=== PATIENT | female | born 1990 | race Caucasian/White ===

== ENCOUNTER 2016-11-09 01:43 | Emergency (ER) | payer MEDICAID, OTHER ==
[~2016-11-09] VITALS: Ht 152.4 cm; Wt 72.6 kg
[~2016-11-09 01:43] MED LIST: COLA100C PO; MOTR200T44 PO; PERC5TAB6 PO
[2016-11-09] MEDS ORDERED: prenatal vitamin (02:11)
[2016-11-09] MEDS ORDERED: NS 1,000 ML IV ONE (04:00)
[2016-11-09] MEDS ORDERED: ONDANSETRON 4MG/2ML VIAL (J2405) IV ONE (04:00)
[2016-11-09 04:34] LABS: BASO % 0.2 % (0.0-1.0); EOS # 0.1 K/mm3 (0.0-0.50); LARGE UNSTAINED CELL # 0.1 K/mm3 (0.0-0.4); LARGE UNSTAINED CELL % 0.6 % (0.0-4.0); LYMPH # 0.5 K/mm3 (1.5-6.5); LYMPH % 4.1 % (24.0-44.0); MEAN CORPUSCULAR HEMOGLOBIN 29.3 pg (27.0-33.0); MEAN CORPUSCULAR HGB CONC 34.6 g/dl (32.0-36.5); MEAN CORPUSCULAR VOLUME 84.7 fl (80.0-96.0); MONO # 0.4 K/mm3 (0.0-0.8); MONO % 3.8 % (0.0-5.0); NEUTROPHILS # 10.1 K/mm3 (1.8-7.7); NEUTROPHILS % 90.4 % (36.0-66.0); PLATELET COUNT, AUTOMATED 221 k/mm3 (150-450); RED CELL DISTRIBUTION WIDTH 12.2 % (11.5-14.5); WHITE BLOOD COUNT 11.2 K/mm3 (4.0-10.0)
[2016-11-09 04:48] LABS: CONTROL LINE HCG INT CTR LINE PRESENT
[2016-11-09 04:55] LABS: ALBUMIN/GLOBULIN RATIO 1.21 (1.00-1.93); ALKALINE PHOSPHATASE 67 U/L (45-117); ALT/SGPT 16 U/L (12-78); ANION GAP 6 MEQ/L (8-16); AST/SGOT 13 U/L (15-37); BILIRUBIN,DIRECT 0.2 MG/DL (0.0-0.2); BILIRUBIN,TOTAL 0.6 MG/DL (0.2-1.0); BLOOD UREA NITROGEN 14 MG/DL (7-18); CALCIUM LEVEL 8.4 MG/DL (8.5-10.1); CARBON DIOXIDE LEVEL 27 MEQ/L (21-32); CHLORIDE LEVEL 107 MEQ/L (98-107); CREATININE FOR GFR 0.75 MG/DL (0.55-1.02); GLOMERULAR FILTRATION RATE > 60.0 (>60); GLUCOSE, FASTING 111 MG/DL (70-105); POTASSIUM SERUM 4.2 MEQ/L (3.5-5.1); SODIUM LEVEL 140 MEQ/L (136-145); TOTAL PROTEIN 7.3 GM/DL (6.4-8.2)
[2016-11-09] MEDS ORDERED: ZOFR4TAB3 PO (06:32)
[2016-11-09 06:43] VITALS: BP 104/68
== END 2016-11-09 06:46 | disposition home or self-care (01) ==
LOC: M ED 03:00
DX: A09 Infectious gastroenteritis and colitis, unspecified (principal); Z79.899 Other long term (current) drug therapy
CPT/HCPCS: 80048; 80076; 83690; 84703; 85025; 93041; 96361; 96374; 99284; J2405

== ENCOUNTER → 2017-02-07 | Outpatient (REF) | payer OTHER ==
[~2017-02-07] MED LIST changes: -COLA100C PO; +COLA100C3 PO; +ZOFR4TAB3 PO; +prenatal vitamin
[2017-02-07 14:04] LABS: BASO % 0.6 % (0.0-1.0); EOS # 0.1 K/mm3 (0.0-0.50); EOS % 1.8 % (0.0-3.0); LARGE UNSTAINED CELL # 0.1 K/mm3 (0.0-0.4); LARGE UNSTAINED CELL % 1.4 % (0.0-4.0); LYMPH # 1.1 K/mm3 (1.5-6.5); LYMPH % 16.2 % (24.0-44.0); MEAN CORPUSCULAR HEMOGLOBIN 30.4 pg (27.0-33.0); MEAN CORPUSCULAR HGB CONC 35.3 g/dl (32.0-36.5); MEAN CORPUSCULAR VOLUME 86.2 fl (80.0-96.0); MONO # 0.3 K/mm3 (0.0-0.8); MONO % 5.3 % (0.0-5.0); NEUTROPHILS # 4.5 K/mm3 (1.8-7.7); NEUTROPHILS % 74.7 % (36.0-66.0); PLATELET COUNT, AUTOMATED 207 k/mm3 (150-450); RED CELL DISTRIBUTION WIDTH 12.9 % (11.5-14.5)
[2017-02-07 14:18] LABS: ALBUMIN 3.9 GM/DL (3.2-5.2); ALBUMIN/GLOBULIN RATIO 1.34 (1.00-1.93); ALKALINE PHOSPHATASE 50 U/L (45-117); ALT/SGPT 17 U/L (12-78); ANION GAP 7 MEQ/L (8-16); AST/SGOT 14 U/L (15-37); BILIRUBIN,TOTAL 0.5 MG/DL (0.2-1.0); BLOOD UREA NITROGEN 10 MG/DL (7-18); CALCIUM LEVEL 9.1 MG/DL (8.5-10.1); CARBON DIOXIDE LEVEL 28 MEQ/L (21-32); CHLORIDE LEVEL 106 MEQ/L (98-107); CREATININE FOR GFR 0.79 MG/DL (0.55-1.02); GLOMERULAR FILTRATION RATE > 60.0 (>60); GLUCOSE, FASTING 85 MG/DL (70-105); SODIUM LEVEL 141 MEQ/L (136-145); TOTAL PROTEIN 6.8 GM/DL (6.4-8.2)
== END ==
LOC: M LAB REF 13:50
PROVIDERS: ATTEND Physician Assistant
DX: R10.30 Lower abdominal pain, unspecified (principal)

== ENCOUNTER → 2017-02-07 | Outpatient (CLI) | payer OTHER ==
--- NOTE | 2017-02-07 14:24 | REP ---
CT ABDOMEN/PELVIS WITHOUT CONTRAST: CT abdomen/pelvis performed without oral or IV contrast. Sagittal and coronal reconstruction images are performed. Visualized lung bases demonstrate no infiltrate. Liver, spleen, adrenals, pancreas, and kidneys are grossly unremarkable. There is no abdominal aortic aneurysm. There is no evidence of adenopathy. There is no free air. No bowel wall thickening is seen. The appendix is normal. There is a moderate amount of dense fluid in the pelvis, presumably representing hemorrhagic fluid. This may be from a ruptured hemorrhagic ovarian cyst. There is an ovarian cyst on the left measuring approximately 5.4 cm in diameter. Urinary bladder is unremarkable. Spondylolysis is noted of L5 with minimal anterior grade 1 spondylolisthesis of L5 on S1. IMPRESSION: Moderate amount of hemorrhagic fluid in the pelvis likely from ruptured hemorrhagic ovarian cyst. There is a cyst in the left adnexa measuring 5.4 cm in diameter. No evidence of appendicitis. No hydronephrosis. No free air. Signed by Flaquito Almaguer MD 02/09/2017 06:57 P
== END ==
LOC: M RAD 13:23
PROVIDERS: ATTEND Physician Assistant
DX: R10.30 Lower abdominal pain, unspecified (principal); N83.202 Unspecified ovarian cyst, left side

== ENCOUNTER → 2017-08-11 | Outpatient (REF) | payer OTHER ==
[~2017-08-11] MED LIST changes: -COLA100C3 PO; +COLA100C5 PO; +PERC5TAB12 PO; -PERC5TAB6 PO
== END ==
LOC: M LAB REF 13:09
PROVIDERS: ATTEND Obstetrics & Gynecology
DX: Z11.3 Encounter for screening for infections with a predominantly sexual mode of transmission (principal)

== ENCOUNTER 2017-10-14 23:08 | Emergency (ER) | payer OTHER ==
[2017-10-14] MEDS ORDERED: ONDANSETRON 4MG/2ML VIAL (J2405) IV (23:45)
[2017-10-14] MEDS ORDERED: NS 1,000 ML IV (23:45)
[2017-10-14] MEDS ORDERED: KETOROLAC 30 MG/ML VIAL (J1885) IV (23:45)
== END 2017-10-15 00:09 | disposition home or self-care (01) ==
LOC: M ED 23:08
DX: G43.009 Migraine without aura, not intractable, without status migrainosus (principal); Z79.2 Long term (current) use of antibiotics; Z98.890 Other specified postprocedural states
CPT/HCPCS: 96374

== ENCOUNTER 2017-10-15 03:58 | Emergency (ER) | payer OTHER ==
[2017-10-15] MEDS: METOCLOPRAMIDE INJ 10MG/2ML VIAL (J2765) IV (06:26)
[2017-10-15] MEDS: NS 1,000 ML IV (06:27)
[2017-10-15] MEDS: KETOROLAC 30 MG/ML VIAL (J1885) IV (06:27)
[2017-10-15 06:34] LABS: BASO # 0.1 10^3/uL (0.0-0.2); BASO % 0.6 % (0.0-1.0); EOS % 0.4 % (0.0-3.0); HEMATOCRIT 41.7 % (36.0-47.0); HEMOGLOBIN 14.6 g/dl (12.0-16.0); IMMATURE GRANULOCYTE % 0.2 % (0-0); LYMPH # 1.1 10^3/uL (1.5-6.5); LYMPH % 12.6 % (24.0-44.0); MEAN CORPUSCULAR HEMOGLOBIN 29.1 pg (27.0-33.0); MEAN CORPUSCULAR VOLUME 83.1 fl (80.0-96.0); MONO # 0.7 10^3/uL (0.0-0.8); MONO % 7.6 % (0.0-5.0); NEUTROPHILS % 78.6 % (36.0-66.0); PLATELET COUNT, AUTOMATED 230 10^3/uL (150-450); RED BLOOD COUNT 5.02 10^6/uL (4.00-5.40); WHITE BLOOD COUNT 8.9 10^3/uL (4.0-10.0)
[2017-10-15 06:47] LABS: APPEARANCE, URINE CLEAR (CLEAR); BACTERIA, URINE AUTO NEGATIVE (NEGATIVE); BILIRUBIN, URINE AUTO NEGATIVE (NEGATIVE); BLOOD, URINE BLOOD NEGATIVE (NEGATIVE); COLOR, URINE YELLOW (YELLOW); GLUCOSE, URINE (UA) AUTO NEGATIVE (NEGATIVE); KETONE, URINE AUTO NEGATIVE (NEGATIVE); LEUKOCYTE ESTERASE, URINE AUTO NEGATIVE (NEGATIVE); MUCUS, URINE SMALL (NEGATIVE); NITRITE, URINE AUTO NEGATIVE (NEGATIVE); PROTEIN, URINE AUTO NEGATIVE (NEGATIVE); RBC, URINE AUTO 3 /HPF (0-3); SPECIFIC GRAVITY URINE AUTO 1.018 (1.002-1.035); SQUAMOUS EPITHELIAL CELL UR AU 0 /HPF (0-6); UROBILINOGEN, URINE AUTO 0.2 mg/dL (0.0-2.0); WBC, URINE AUTO 1 /HPF (0-3)
[2017-10-15] MEDS: diphenhydrAMINE INJ 50MG/ML VIAL (J1200) IV (06:51)
[2017-10-15 06:53] LABS: ANION GAP 7 MEQ/L (8-16); BLOOD UREA NITROGEN 8 MG/DL (7-18); CALCIUM LEVEL 8.3 MG/DL (8.5-10.1); CARBON DIOXIDE LEVEL 28 MEQ/L (21-32); CHLORIDE LEVEL 105 MEQ/L (98-107); CREATININE FOR GFR 0.74 MG/DL (0.55-1.30); GLOMERULAR FILTRATION RATE > 60.0 (>60); GLUCOSE, FASTING 117 MG/DL (70-100); POTASSIUM SERUM 3.5 MEQ/L (3.5-5.1); SODIUM LEVEL 140 MEQ/L (136-145)
== END 2017-10-15 07:25 | disposition home or self-care (01) ==
LOC: M ED 03:58
DX: G43.009 Migraine without aura, not intractable, without status migrainosus (principal); G89.29 Other chronic pain; I51.9 Heart disease, unspecified; E66.9 Obesity, unspecified; Z82.49 Family history of ischemic heart disease and other diseases of the circulatory system; Z79.2 Long term (current) use of antibiotics
CPT/HCPCS: J1200

== ENCOUNTER → 2018-02-07 | Outpatient (REF) | payer OTHER ==
[2018-02-08 11:31] LABS: FREE T4 1.18 NG/DL (0.76-1.46)
[2018-02-08 12:30] LABS: HEMATOCRIT 41.7 % (36.0-47.0); HEMOGLOBIN 14.2 g/dl (12.0-15.5); MEAN CORPUSCULAR HEMOGLOBIN 29.1 pg (27.0-33.0); MEAN CORPUSCULAR HGB CONC 34.1 g/dl (32.0-36.5); MEAN CORPUSCULAR VOLUME 85.5 fl (80.0-96.0); PLATELET COUNT, AUTOMATED 236 10^3/uL (150-450); RED BLOOD COUNT 4.88 10^6/uL (4.00-5.40); RED CELL DISTRIBUTION WIDTH 12.3 % (11.5-14.5); WHITE BLOOD COUNT 5.9 10^3/uL (4.0-10.0)
[2018-02-08 12:53] LABS: ADD MANUAL DIFFER YES; DIFF SLIDE NUMBER 312
[2018-02-08 13:29] LABS: ATYPICAL LYMPH 1 % (0-5); BANDS 1 % (< 11); BASOPHILS 1 % (0-4); EOSINOPHILS 3 % (0-5); LYMPHOCYTES 28 % (16-52); MONOCYTES 2 % (0-8); NEUTROPHILS 64 % (35-75)
[2018-02-08 13:30] LABS: ANISOCYTOSIS 1+; PLATELET ESTIMATE NORMAL (NORMAL)
[2018-02-08 14:38] LABS: LUTEINIZING HORMONE 6.2 mIU/mL
[2018-02-08 14:39] LABS: FOLLICLE STIMULATING HORMONE 2.5 mIU/mL
== END ==
LOC: M LABDRAW1 13:00
DX: N92.6 Irregular menstruation, unspecified (principal); R53.81 Other malaise

== ENCOUNTER 2018-04-15 15:16 | Emergency (ER) | payer OTHER ==
[2018-04-15] MEDS: KETOROLAC 30 MG/ML VIAL (J1885) IV (16:13)
[2018-04-15] MEDS: NS 1,000 ML IV (16:13)
[2018-04-15] MEDS: diphenhydrAMINE INJ 50MG/ML VIAL (J1200) IV (16:13)
[2018-04-15] MEDS: METOCLOPRAMIDE INJ 10MG/2ML VIAL (J2765) IV (16:13)
== END 2018-04-15 17:25 | disposition home or self-care (01) ==
LOC: M ED 15:16
DX: G43.909 Migraine, unspecified, not intractable, without status migrainosus (principal); Z79.899 Other long term (current) drug therapy
CPT/HCPCS: J1200

== ENCOUNTER 2018-09-29 01:14 | Emergency (ER) | payer MEDICAID, OTHER, SELFPAY ==
[~2018-09-29] VITALS: Ht 152.4 cm; Wt 78.2 kg
[~2018-09-29 01:14] MED LIST changes: +MAXA5TAB10 PO; +NAPR-885 PO; +ZOFR4TAB14 PO; +ZOFR4TAB14 SL; -ZOFR4TAB3 PO; +cipro PO
[2018-09-29] MEDS ORDERED: diphenhydrAMINE 50 MG CAP PO ONE (03:15)
[2018-09-29] MEDS ORDERED: MECLIZINE 25 MG TABLET PO ONE (03:15)
[2018-09-29] MEDS ORDERED: MECL-68 PO (04:54)
[2018-09-29 04:55] VITALS: BP 106/63
== END 2018-09-29 04:58 | disposition home or self-care (01) ==
LOC: M ED 01:14
DX: H83.09 Labyrinthitis, unspecified ear (principal); G43.909 Migraine, unspecified, not intractable, without status migrainosus

== ENCOUNTER → 2018-10-13 | Outpatient (REF) | payer OTHER ==
[~2018-10-13] MED LIST changes: +MECL-68 PO
[2018-10-13 21:50] LABS: INFLUENZA A AMPLIFICATION NEGATIVE (NEGATIVE); INFLUENZA B AMPLIFICATION NEGATIVE (NEGATIVE)
== END ==
LOC: M LAB REF 10:09
PROVIDERS: ATTEND Physician Assistant Medical
DX: J11.1 Influenza due to unidentified influenza virus with other respiratory manifestations (principal)

== ENCOUNTER → 2018-10-24 | Outpatient (REF) | payer OTHER | LOC: M LAB REF 17:04 | PROVIDERS: ATTEND Specialist | DX: Z12.4 Encounter for screening for malignant neoplasm of cervix (principal); Z11.51 Encounter for screening for human papillomavirus (HPV); R87.610 Atypical squamous cells of undetermined significance on cytologic smear of cervix (ASC-US) ==

== ENCOUNTER → 2018-11-13 | Outpatient (REF) | payer MEDICAID, OTHER ==
[2018-11-13 17:05] LABS: BASO # 0.1 10^3/uL (0.0-0.2); BASO % 0.9 % (0.0-1.0); EOS # 0.1 10^3/uL (0.0-0.50); HEMATOCRIT 42.9 % (36.0-47.0); HEMOGLOBIN 14.2 g/dl (12.0-15.5); LYMPH # 1.2 10^3/uL (1.5-6.5); LYMPH % 21.8 % (24.0-44.0); MEAN CORPUSCULAR HEMOGLOBIN 28.5 pg (27.0-33.0); MEAN CORPUSCULAR HGB CONC 33.1 g/dl (32.0-36.5); MONO # 0.5 10^3/uL (0.0-0.8); MONO % 9.2 % (0.0-5.0); NEUTROPHILS # 3.7 10^3/uL (1.8-7.7); NEUTROPHILS % 65.9 % (36.0-66.0); PLATELET COUNT, AUTOMATED 244 10^3/uL (150-450); RED BLOOD COUNT 4.99 10^6/uL (4.00-5.40); WHITE BLOOD COUNT 5.6 10^3/uL (4.0-10.0)
[2018-11-13 17:15] LABS: CHOLESTEROL RISK RATIO 3.355 (<5); THYROID STIMULATING HORMONE 0.883 uIU/ML (0.358-3.740)
== END ==
LOC: M SFHCCLAY 11:31
PROVIDERS: ATTEND Family Medicine
DX: R53.83 Other fatigue (principal); Z82.49 Family history of ischemic heart disease and other diseases of the circulatory system; Z13.220 Encounter for screening for lipoid disorders

== ENCOUNTER → 2018-11-20 | Outpatient (CLI) | payer OTHER ==
[2018-11-20 09:56] LABS: FOLLICLE STIMULATING HORMONE 2.7 mIU/mL; LUTEINIZING HORMONE 2.7 mIU/mL; PROGESTERONE 11.59 NG/ML; PROLACTIN 7.7 NG/ML
== END ==
LOC: M LAB 09:02
PROVIDERS: ATTEND Specialist
DX: N93.8 Other specified abnormal uterine and vaginal bleeding (principal)

== ENCOUNTER → 2019-02-08 | Outpatient (CLI) | payer OTHER | LOC: M SMT 09:37 | PROVIDERS: ATTEND Specialist | DX: N91.2 Amenorrhea, unspecified (principal) ==

== ENCOUNTER → 2019-03-13 | Outpatient (CLI) | payer OTHER ==
--- NOTE | 2019-03-27 16:33 | REP ---
MRI brain without contrast: History: Migraine headache without aura. Repeat dictation. . Comparison study: Comparison CT brain April 15, 2018. Technique: Axial and sagittal imaging planes are utilized for T1 and T2-weighted scans. Sequences include spin-echo, fast spin echo, FLAIR, and diffusion weighted sequences. MRI findings: No bony calvarial lesion is seen. Craniocervical junction and upper cervical cord are normal in appearance. There is no MR evidence of significant paranasal sinus disease. No intraorbital abnormality is seen. The lateral, third, and fourth ventricles are normal in size and position. Almaguer-white differentiation pattern is intact above and below the tentorium. There is no evidence of intracranial hemorrhage. No mass, infarction, extra-axial fluid collection or midline shift is seen. No abnormal white matter lesion is seen. Impression: Negative noncontrast brain MRI study. Electronically Signed by Rian Davis MD 03/27/2019 04:25 P
== END ==
LOC: M RAD 18:17
PROVIDERS: ATTEND Registered Nurse
DX: G43.019 Migraine without aura, intractable, without status migrainosus (principal)

== ENCOUNTER → 2019-07-23 | Outpatient (CLI) | payer OTHER ==
[~2019-07-23] MED LIST changes: +ISOVUE-370 76% 100ML VIAL (Q9967) As Ordered ONE
--- NOTE | 2019-07-23 14:04 | REP ---
Hysterosalpingogram: Five views. History: Abnormal vaginal and uterine bleeding. Secondary infertility. Procedure: Fluoroscopic spot filming and fluoroscopy are provided. Endometrium was cannulated and contrast injected by the referring tube mill operator. The fluoroscopy time is 0.6 minutes. Findings: Initial fluoroscopic spot image demonstrates that the endometrial cannula is positioned in the isthmic segment of the left fallopian tube which is therefore directly injected. The isthmic and ampullary segments are patent and peritoneal spillage is promptly visualized on the left. The catheter was pulled back and the balloon deflated slightly and opacification of the remainder of the endometrial cavity was accomplished. The isthmic and ampullary segment of the right fallopian tube is observed and right fallopian tubal patency is also documented. No endometrial abnormality. Impression: Normal hysterosalpingogram. Bilateral tubal patency is observed. Electronically Signed by Rian Davis MD 07/23/2019 05:54 P
== END ==
LOC: M RADPRO 12:16
PROVIDERS: ATTEND Specialist
DX: N93.8 Other specified abnormal uterine and vaginal bleeding (principal)
CPT/HCPCS: 58340; 74740; Q9967

== ENCOUNTER 2020-03-17 18:19 | Emergency (ER) | payer OTHER ==
[~2020-03-17] VITALS: Ht 154.9 cm; Wt 69.3 kg
[~2020-03-17 18:19] MED LIST changes: -ISOVUE-370 76% 100ML VIAL (Q9967) As Ordered ONE; -MECL-68 PO; +MECL1TAB31 PO
[2020-03-17] MEDS ORDERED: KETOROLAC 30 MG/ML 1ML VIAL IV ONE (19:45)
[2020-03-17 19:46] LABS: BASO # 0.1 10^3/uL (0.0-0.2); BASO % 0.8 % (0.0-1.0); EOS # 0.1 10^3/uL (0.0-0.5); EOS % 2.2 % (0.0-3.0); HEMATOCRIT 41.6 % (36.0-47.0); HEMOGLOBIN 14.1 g/dl (12.0-15.5); LYMPH # 1.2 10^3/uL (1.5-5.0); LYMPH % 20.1 % (24.0-44.0); MEAN CORPUSCULAR HEMOGLOBIN 29.6 pg (27.0-33.0); MEAN CORPUSCULAR HGB CONC 33.9 g/dl (32.0-36.5); MEAN CORPUSCULAR VOLUME 87.2 fl (80.0-96.0); MONO # 0.6 10^3/uL (0.0-0.8); MONO % 9.8 % (0.0-5.0); NEUTROPHILS % 66.9 % (36.0-66.0); PLATELET COUNT, AUTOMATED 209 10^3/uL (150-450); RED BLOOD COUNT 4.77 10^6/uL (4.00-5.40); WHITE BLOOD COUNT 5.9 10^3/uL (4.0-10.0)
[2020-03-17 20:05] LABS: ALT/SGPT 14 U/L (12-78); BILIRUBIN,DIRECT < 0.1 MG/DL (0.0-0.2); BILIRUBIN,TOTAL 0.3 MG/DL (0.2-1.0); LIPASE 64 U/L (73-393); TOTAL PROTEIN 7.1 GM/DL (6.4-8.2)
[2020-03-17 20:49] VITALS: BP 115/80
== END 2020-03-17 21:06 | disposition home or self-care (01) ==
LOC: M ED 18:19
DX: R10.9 Unspecified abdominal pain (principal); G43.909 Migraine, unspecified, not intractable, without status migrainosus
CPT/HCPCS: 36415; 80047; 80076; 81001; 83690; 84702; 85025; 96374; 99284; J1885

== ENCOUNTER → 2020-07-10 | Outpatient (REF) | payer OTHER | LOC: M SFHCWAGY 13:46 | PROVIDERS: ATTEND Specialist | DX: Z12.4 Encounter for screening for malignant neoplasm of cervix (principal); R87.610 Atypical squamous cells of undetermined significance on cytologic smear of cervix (ASC-US) ==

== ENCOUNTER → 2020-07-10 | Outpatient (CLI) | payer OTHER | LOC: M PLALAB 12:58 | PROVIDERS: ATTEND Specialist | DX: Z80.3 Family history of malignant neoplasm of breast (principal) ==

== ENCOUNTER → 2020-09-28 | Outpatient (CLI) | payer OTHER ==
--- NOTE | 2020-09-28 12:51 | REP ---
INDICATION: LEFT BREAST LUMP; N63.20 LEFT BREAST LUMP. Family history of mother with breast cancer at age 54, paternal grandmother with breast cancer at age 50 and paternal aunts with breast cancer at age 50. COMPARISON: Baseline study. TECHNIQUE: MLO and CC views of both breasts performed with tomosynthesis. Spot compression views left breast performed. Focused left breast ultrasound performed. FINDINGS: Moderate heterogeneous fibroglandular tissue is present in a fairly symmetrical pattern. There is no mammographic evidence of a mass. No architectural distortion is seen. No clustered microcalcifications are seen. The area of the palpable lump at 12 o'clock left breast is marked on the skin and there is no underlying mammographic abnormality. Focused left breast ultrasound performed at the site of the palpable lump in the left breast. No cystic or solid nodule is seen. The Volpara volumetric breast density pattern is C. IMPRESSION: BIRADS/ACR category 1, negative. No mass or clustered microcalcifications on the mammogram. There is no mammographic or sonographic evidence of a mass at the site of the reported palpable lump 12 o'clock left breast. A negative mammogram and ultrasound should not deter biopsy if there is a clinically suspicious palpable mass present. This patient's Tyrer-Cuzick lifetime breast cancer risk assessment score is 29.1%. This mammogram was interpreted with the aid of an FDA-approved computer-aided detection system. The patient states she had a clinical breast exam in September 2020. The patient letter being requested is M2. RECOMMENDATION: Recommend clinical correlation and follow-up for palpable lump left breast. Given the patient's elevated lifetime risk of breast cancer, supplemental screening MRI of the breasts is recommended in 6 months. <Electronically signed by Flaquito Almaguer > 09/28/20 [id number]
== END ==
LOC: M WHC 08:28
PROVIDERS: ATTEND Specialist
DX: N63.20 Unspecified lump in the left breast, unspecified quadrant (principal)
CPT/HCPCS: 76642; 77066; G0279

== ENCOUNTER → 2021-01-25 | Outpatient (REF) | payer OTHER ==
[2021-01-25 14:26] LABS: FOLLICLE STIMULATING HORMONE 3.6 mIU/mL; FREE T4 1.05 NG/DL (0.76-1.46); LUTEINIZING HORMONE 3.2 mIU/mL; PROGESTERONE 4.39 NG/ML; PROLACTIN 7.5 NG/ML; THYROID STIMULATING HORMONE 0.792 uIU/ML (0.358-3.740)
== END ==
LOC: M PLALAB 11:32
PROVIDERS: ATTEND Specialist
DX: N92.6 Irregular menstruation, unspecified (principal)

== ENCOUNTER → 2021-04-28 | Outpatient (CLI) | payer OTHER | LOC: M PLALAB 10:10 | PROVIDERS: ATTEND Specialist | DX: N92.6 Irregular menstruation, unspecified (principal) ==

== ENCOUNTER → 2021-06-03 | Outpatient (CLI) | payer OTHER ==
[2021-06-03 12:52] LABS: BASO % 0.5 % (0.0-1.0); EOS # 0.1 10^3/uL (0.0-0.5); EOS % 1.2 % (0.0-3.0); HEMATOCRIT 39.6 % (36.0-47.0); HEMOGLOBIN 13.7 g/dl (12.0-15.5); LYMPH # 0.9 10^3/uL (1.5-5.0); LYMPH % 15.4 % (24.0-44.0); MEAN CORPUSCULAR HGB CONC 34.6 g/dl (32.0-36.5); MEAN CORPUSCULAR VOLUME 86.7 fl (80.0-96.0); MONO # 0.5 10^3/uL (0.0-0.8); MONO % 8.3 % (2.0-8.0); NEUTROPHILS # 4.4 10^3/uL (1.5-8.5); NEUTROPHILS % 74.1 % (36.0-66.0); PLATELET COUNT, AUTOMATED 178 10^3/uL (150-450); RED BLOOD COUNT 4.57 10^6/uL (4.00-5.40)
[2021-06-03 13:48] LABS: HIV 1&2 SCREEN CENTAUR NEGATIVE (NEGATIVE)
[2021-06-03 14:08] LABS: GC DNA AMPLIFICATION NEGATIVE (NEGATIVE)
== END ==
LOC: M PLALAB 10:26
PROVIDERS: ATTEND Specialist
DX: Z34.81 Encounter for supervision of other normal pregnancy, first trimester (principal)

== ENCOUNTER → 2021-08-13 | Outpatient (CLI) | payer OTHER ==
--- NOTE | 2021-08-17 04:08 | REP ---
INDICATION: PREG, ANATOMY COMPARISON: None. TECHNIQUE: Transabdominal obstetrical ultrasound with color Doppler evaluation. FINDINGS: Examination demonstrates a single live intrauterine in oblique presentation. motion is identified by technologist. Placenta is noted anterior and grade 0 without evidence for placenta previa or abruption. Amniotic fluid volume is normal. Cervix measures 5.5 cm in length and appears closed.. Selected gestational age: 20 weeks 2 days with AMAURY 12/29/2021. Gestational age by current measurements 20 weeks 2 days with AMAURY 12/29/2021. FHR equals 139 beats per minute. BPD: 4.6 cm; 20 weeks 0 days; 40% HC: 16.9 cm; 19 weeks 4 days; 28% AC: 15.0 cm; 20 weeks 2 days; 49% FL: 3.5 cm; 20 weeks 6 days; 64% HL: 3.3 cm; 21 weeks 1 day; 64% HC/AC: 1.13 Estimated weight 353 grams (52ndpercentile). Anatomical assessment demonstrates normal structures including cranium, choroid plexus, cavum, cerebellum/posterior fossa, facial features, lungs, four-chamber heart/ventricular outflow tracts, diaphragm, stomach, cord insertion/three-vessel cord, kidneys/bladder, spine, and extremities. IMPRESSION: Single live intrauterine demonstrating appropriate estimated weight and growth. Anatomical assessment is complete and normal. <Electronically signed by Osmar Richey > 08/17/21 [id number]
== END ==
LOC: M RAD 12:56
PROVIDERS: ATTEND Specialist
DX: Z34.82 Encounter for supervision of other normal pregnancy, second trimester (principal); Z3A.20 20 weeks gestation of pregnancy

== ENCOUNTER → 2021-09-23 | Outpatient (CLI) | payer OTHER ==
[2021-09-23 17:52] LABS: HEMATOCRIT 33.5 % (36.0-47.0); HEMOGLOBIN 11.2 g/dl (12.0-15.5); MEAN CORPUSCULAR HEMOGLOBIN 29.7 pg (27.0-33.0); MEAN CORPUSCULAR HGB CONC 33.4 g/dl (32.0-36.5); MEAN CORPUSCULAR VOLUME 88.9 fl (80.0-96.0); PLATELET COUNT, AUTOMATED 204 10^3/uL (150-450); RED BLOOD COUNT 3.77 10^6/uL (4.00-5.40); WHITE BLOOD COUNT 8.4 10^3/uL (4.0-10.0)
[2021-09-23 19:43] LABS: GC DNA AMPLIFICATION NEGATIVE (NEGATIVE)
== END ==
LOC: M PLALAB 14:22
PROVIDERS: ATTEND Obstetrics & Gynecology
DX: Z36.89 Encounter for other specified antenatal screening (principal); Z3A.26 26 weeks gestation of pregnancy

== ENCOUNTER → 2021-10-11 | Outpatient (CLI) | payer OTHER | LOC: M LAB 07:02 | PROVIDERS: ATTEND Obstetrics & Gynecology | DX: O99.810 Abnormal glucose complicating pregnancy (principal) ==

== ENCOUNTER → 2021-11-29 | Outpatient (REF) | payer OTHER | LOC: M SFHCWAGY 17:23 | PROVIDERS: ATTEND Obstetrics & Gynecology | DX: Z36.89 Encounter for other specified antenatal screening (principal); Z3A.36 36 weeks gestation of pregnancy ==

== ENCOUNTER → 2021-12-17 | Outpatient (CLI) | payer OTHER ==
[~2021-12-17] MED LIST changes: +PREN200C PO; +PRIL20TA2 PO
== END ==
LOC: M LABSMTC 09:45
PROVIDERS: ATTEND Anesthesiology
DX: Z01.812 Encounter for preprocedural laboratory examination (principal); Z20.822 Contact with and (suspected) exposure to COVID-19

== ENCOUNTER 2021-12-22 05:24 | Inpatient (IN) | payer OTHER ==
[~2021-12-22] VITALS: Ht 154.9 cm; Wt 86.9 kg
[2021-12-22] VITALS (8 sets, daily range): BP systolic 90–120; BP diastolic 49–74
[2021-12-22] MEDS ORDERED: BICITRA 30ML SOLN UDC PO ONE (06:00)
[2021-12-22] MEDS ORDERED: ceFAZolin SOD 2 GM in IV 1 EA IV ONE (06:00)
[2021-12-22] MEDS ORDERED: LR 1,000 ML IV ONE (06:00)
[2021-12-22] MEDS ORDERED: HOME MED LIST COMPLETE! XX SCH (06:30)
[2021-12-22 07:02] LABS: HEMATOCRIT 32.5 % (36.0-47.0); HEMOGLOBIN 10.7 g/dl (12.0-15.5); MEAN CORPUSCULAR HEMOGLOBIN 25.8 pg (27.0-33.0); MEAN CORPUSCULAR HGB CONC 32.9 g/dl (32.0-36.5); MEAN CORPUSCULAR VOLUME 78.3 fl (80.0-96.0); PLATELET COUNT, AUTOMATED 207 10^3/uL (150-450); RED BLOOD COUNT 4.15 10^6/uL (4.00-5.40); WHITE BLOOD COUNT 9.7 10^3/uL (4.0-10.0)
[2021-12-22] MEDS: LR 1,000 ML IV SCH ×2 (07:15→17:17)
[2021-12-22] MEDS ORDERED: MORPHINE PRES-FREE INJ 10 MG/10 ML VIAL As Ordered ONE (07:23)
[2021-12-22] MEDS ORDERED: OXYTOCIN 30 UNITS IN 0.9% NaCl 500ML IV BAG (J2590) As Ordered ONE ×2 (07:23→09:26)
[2021-12-22] MEDS ORDERED: diphenhydrAMINE 50MG/ML VIAL (J1200) IV PRN (07:56)
[2021-12-22] MEDS ORDERED: NALOXONE INJ 0.4MG/1ML VIAL (J2310 PER 1MG) IV PRN ×2 (07:56)
[2021-12-22] MEDS ORDERED: ONDANSETRON 4MG/2ML VIAL IV PRN ×3 (07:56→09:35)
[2021-12-22] MEDS ORDERED: METOCLOPRAMIDE INJ 10MG/2ML VIAL (J2765 PER 1) IV PRN (07:56)
[2021-12-22] MEDS ORDERED: PERCOCET 5MG/325MG TAB PO PRN (08:05)
[2021-12-22] MEDS ORDERED: MEASLES,MUMPS,RUBELLA VACCINE INJ (MMR-II) (90707) SC SCH (08:05)
[2021-12-22] MEDS ORDERED: SIMETHICONE 80MG CHEW TAB PO PRN (08:05)
[2021-12-22] MEDS ORDERED: RHOGAM 300 MCG (1500 IU) INJ (J2790) IM SCH (08:05)
[2021-12-22] MEDS ORDERED: LR 1,000 ML IV SCH ×2 (08:05→09:35)
[2021-12-22] MEDS ORDERED: MOM 30ML SUSPENSION UDC PO PRN (08:05)
[2021-12-22] MEDS ORDERED: OXYTOCIN DRIP 30 UNITS in IV 1 EA IV SCH (08:05)
[2021-12-22] MEDS ORDERED: ePHEDrine SULFATE 25 MG/5 ML(5MG/ML) SYRINGE As Ordered ONE (08:09)
[2021-12-22] MEDS ORDERED: PHENYLephrine 500MCG 5ML (100MCG/ML) SYRINGE As Ordered ONE (08:09)
[2021-12-22] MEDS ORDERED: dexameTHASONE 4 MG/ML 1ML VIAL (J1100 PER 1MG) As Ordered ONE (08:09)
[2021-12-22] MEDS ORDERED: ONDANSETRON 4MG/2ML VIAL As Ordered ONE (08:09)
[2021-12-22] MEDS ORDERED: KETOROLAC 60MG 2ML VIAL As Ordered ONE (08:23)
[2021-12-22] MEDS ORDERED: ACETAMINOPHEN 1000MG 100ML IV BTL (OFIRMEV) (J0131 PER 10MG) As Ordered ONE (08:23)
[2021-12-22] MEDS ORDERED: oxyCODONE 5MG TAB PO PRN (09:35)
[2021-12-22] MEDS ORDERED: fentaNYL 100 MCG/2 ML INJECTION IV PRN (09:35)
[2021-12-22] MEDS: PRENATAL VITAMINS CHEWABLE TABLET PO SCH (11:10)
[2021-12-22] MEDS: DOCUSATE SODIUM 100MG CAPSULE PO SCH ×2 (11:10→21:02)
[2021-12-22] MEDS: PERCOCET 5MG/325MG TAB PO PRN (13:01)
[2021-12-22] MEDS: KETOROLAC 30 MG/ML 1ML VIAL IV SCH ×2 (14:49→21:02)
[2021-12-23 02:23] VITALS: BP 103/54
[2021-12-23] MEDS: KETOROLAC 30 MG/ML 1ML VIAL IV SCH (03:50)
[2021-12-23 06:09] VITALS: BP 110/60
[2021-12-23 07:40] LABS: HEMATOCRIT 26.8 % (36.0-47.0); MEAN CORPUSCULAR HEMOGLOBIN 26.1 pg (27.0-33.0); MEAN CORPUSCULAR HGB CONC 32.5 g/dl (32.0-36.5); MEAN CORPUSCULAR VOLUME 80.5 fl (80.0-96.0); PLATELET COUNT, AUTOMATED 179 10^3/uL (150-450); RED BLOOD COUNT 3.33 10^6/uL (4.00-5.40); WHITE BLOOD COUNT 8.6 10^3/uL (4.0-10.0)
[2021-12-23 07:47] LABS: HEMOGLOBIN 8.7 g/dl (12.0-15.5)
[2021-12-23] MEDS: PRENATAL VITAMINS CHEWABLE TABLET PO SCH (08:33)
[2021-12-23] MEDS: DOCUSATE SODIUM 100MG CAPSULE PO SCH (08:33)
[2021-12-23 10:00] VITALS: BP 115/64
[2021-12-23] MEDS ORDERED: COLA100C5 PO (10:59)
[2021-12-23] MEDS ORDERED: PERCOCET PO (11:00)
[2021-12-23] MEDS ORDERED: IBUP-1022 PO (11:00)
[2021-12-23] MEDS ORDERED: IBUPROFEN 800 MG TAB PO SCH (11:00)
[2021-12-23] MEDS: PERCOCET 5MG/325MG TAB PO PRN (11:26)
== END 2021-12-23 11:30 | disposition home or self-care (01) | DRG 540 ==
LOC: M LDI 05:24 → M OBS 10:15
PROVIDERS: ADMIT Obstetrics & Gynecology; ATTEND Obstetrics & Gynecology
PROC: 10D00Z1 Extraction of Products of Conception, Low, Open Approach (ICD-10-PCS; principal; 2021-12-22 07:30)
DX: O34.211 Maternal care for low transverse scar from previous cesarean delivery (principal); Z3A.39 39 weeks gestation of pregnancy; Z37.0 Single live birth

== ENCOUNTER 2021-12-26 08:30 | Emergency (ER) | payer OTHER ==
[~2021-12-26] VITALS: Ht 154.9 cm; Wt 84.4 kg
[~2021-12-26 08:30] MED LIST changes: +IBUP-1022 PO; +PERCOCET PO
[2021-12-26 10:24] LABS: HEMATOCRIT 32.7 % (36.0-47.0); HEMOGLOBIN 10.4 g/dl (12.0-15.5)
[2021-12-26 10:45] VITALS: BP 118/77
== END 2021-12-26 10:57 | disposition home or self-care (01) ==
LOC: M ED 08:30
DX: B34.2 Coronavirus infection, unspecified (principal); G43.909 Migraine, unspecified, not intractable, without status migrainosus; Z79.899 Other long term (current) drug therapy

== ENCOUNTER → 2022-02-19 | Outpatient (CLI) | payer OTHER | LOC: M LAB 10:13 | PROVIDERS: ATTEND Advanced Practice Midwife | DX: R30.0 Dysuria (principal); R35.0 Frequency of micturition ==

== ENCOUNTER → 2022-03-21 | Outpatient (REF) | payer OTHER ==
[2022-03-21 17:08] LABS: HEMATOCRIT 40.9 % (36.0-47.0); HEMOGLOBIN 13.3 g/dl (12.0-15.5); MEAN CORPUSCULAR HEMOGLOBIN 27.1 pg (27.0-33.0); MEAN CORPUSCULAR HGB CONC 32.5 g/dl (32.0-36.5); MEAN CORPUSCULAR VOLUME 83.3 fl (80.0-96.0); PLATELET COUNT, AUTOMATED 227 10^3/uL (150-450); RED BLOOD COUNT 4.91 10^6/uL (4.00-5.40); WHITE BLOOD COUNT 4.7 10^3/uL (4.0-10.0)
[2022-03-21 23:25] LABS: BLOOD UREA NITROGEN 10 MG/DL (7-18); CARBON DIOXIDE LEVEL 28 MEQ/L (21-32); CHLORIDE LEVEL 108 MEQ/L (98-107); CHOLESTEROL LEVEL 169 MG/DL (<200); CHOLESTEROL RISK RATIO 2.522 (<5); CREATININE FOR GFR 0.76 MG/DL (0.55-1.30); FREE T4 0.96 NG/DL (0.76-1.46); GLOMERULAR FILTRATION RATE > 60.0 (>60); GLUCOSE, FASTING 83 MG/DL (70-100); HDL CHOLESTEROL 67 MG/DL (>40); LDL CHOLESTEROL 94 MG/DL (<100); NON-HDL-C 102 MG/DL; POTASSIUM SERUM 4.4 MEQ/L (3.5-5.1); SODIUM LEVEL 139 MEQ/L (136-145); THYROID STIMULATING HORMONE 0.878 uIU/ML (0.358-3.740); TRIGLYCERIDES LEVEL 41 MG/DL (<150)
== END ==
LOC: M SFHCCLAY 10:36
PROVIDERS: ATTEND Nurse Practitioner Family
DX: Z00.00 Encounter for general adult medical examination without abnormal findings (principal)

== ENCOUNTER → 2022-06-27 | Outpatient (REF) | payer OTHER | LOC: M PLALAB 16:20 | PROVIDERS: ATTEND Obstetrics & Gynecology | DX: Z01.419 Encounter for gynecological examination (general) (routine) without abnormal findings (principal) ==

== ENCOUNTER → 2022-10-12 | Outpatient (REF) | payer OTHER ==
[2022-10-12 17:53] LABS: HEMOGLOBIN 13.9 g/dl (12.0-15.5); MEAN CORPUSCULAR HEMOGLOBIN 28.8 pg (27.0-33.0); MEAN CORPUSCULAR HGB CONC 33.1 g/dl (32.0-36.5); MEAN CORPUSCULAR VOLUME 87.1 fl (80.0-96.0); PLATELET COUNT, AUTOMATED 223 10^3/uL (150-450); RED BLOOD COUNT 4.82 10^6/uL (4.00-5.40); WHITE BLOOD COUNT 6.2 10^3/uL (4.0-10.0)
[2022-10-12 18:27] LABS: FREE T4 1.2 NG/DL (0.89-1.76); THYROID STIMULATING HORMONE 1.346 uIU/ML (0.55-4.78)
[2022-10-12 18:29] LABS: PROLACTIN 9.38 NG/ML
== END ==
LOC: M SFHCCLAY 13:48
PROVIDERS: ATTEND Nurse Practitioner Family
DX: R61 Generalized hyperhidrosis (principal)

== ENCOUNTER → 2022-11-30 | Outpatient (REF) | payer OTHER | LOC: M SFHCCLAY 10:19 | PROVIDERS: ATTEND Nurse Practitioner Family | DX: J01.00 Acute maxillary sinusitis, unspecified (principal) ==

== ENCOUNTER → 2023-07-21 | Outpatient (CLI) | payer OTHER ==
[~2023-07-21] MED LIST changes: +MECL-209 PO; -MECL1TAB31 PO
== END ==
LOC: M CLY 15:21
PROVIDERS: ATTEND Nurse Practitioner Family
DX: M25.562 Pain in left knee (principal)

== ENCOUNTER → 2024-03-28 | Outpatient (REF) | payer OTHER ==
[2024-04-02 14:57] LABS: HPV APTIMA Not Detected (Not Detected)
== END ==
LOC: M SFHCWAGY 15:02
PROVIDERS: ATTEND Nurse Practitioner Family
DX: Z12.4 Encounter for screening for malignant neoplasm of cervix (principal)

== ENCOUNTER → 2024-05-28 | Outpatient (REF) | payer OTHER ==
[2024-05-28 17:59] LABS: APPEARANCE, URINE CLEAR (CLEAR); BACTERIA, URINE AUTO NEGATIVE (NEGATIVE); BILIRUBIN, URINE AUTO NEGATIVE (NEGATIVE); BLOOD, URINE BLOOD NEGATIVE (NEGATIVE); COLOR, URINE STRAW (YELLOW); GLUCOSE, URINE (UA) AUTO NEGATIVE (NEGATIVE); KETONE, URINE AUTO NEGATIVE (NEGATIVE); LEUKOCYTE ESTERASE, URINE AUTO TRACE (NEGATIVE); NITRITE, URINE AUTO NEGATIVE (NEGATIVE); PROTEIN, URINE AUTO NEGATIVE (NEGATIVE); RBC, URINE AUTO 0 /HPF (0-3); SPECIFIC GRAVITY URINE AUTO 1.006 (1.002-1.035); SQUAMOUS EPITHELIAL CELL UR AU 4 /HPF (0-6); UROBILINOGEN, URINE AUTO 0.2 mg/dL (0.0-2.0); WBC, URINE AUTO 0 /HPF (0-3)
[2024-05-28 18:03] LABS: BASO # 0.1 10^3/uL (0.0-0.2); BASO % 0.9 % (0.0-1.0); EOS # 0.2 10^3/uL (0.0-0.5); EOS % 2.7 % (0.0-3.0); HEMOGLOBIN 14.5 g/dl (12.0-15.5); LYMPH # 1.4 10^3/uL (1.5-5.0); LYMPH % 24.2 % (24.0-44.0); MEAN CORPUSCULAR HEMOGLOBIN 29.8 pg (27.0-33.0); MEAN CORPUSCULAR HGB CONC 34.5 g/dl (32.0-36.5); MEAN CORPUSCULAR VOLUME 86.4 fl (80.0-96.0); MONO # 0.5 10^3/uL (0.0-0.8); MONO % 8.6 % (2.0-8.0); NEUTROPHILS # 3.6 10^3/uL (1.5-8.5); NEUTROPHILS % 63.4 % (36.0-66.0); PLATELET COUNT, AUTOMATED 212 10^3/uL (150-450); RED BLOOD COUNT 4.86 10^6/uL (4.00-5.40); WHITE BLOOD COUNT 5.6 10^3/uL (4.0-10.0)
[2024-05-28 19:39] LABS: ALBUMIN 4.5 G/DL (3.2-5.2); ALKALINE PHOSPHATASE 37 U/L (46-116); ALT/SGPT 11 U/L (7.0-40); AST/SGOT 12 U/L (<34); BILIRUBIN,TOTAL 0.7 MG/DL (0.3-1.2); BLOOD UREA NITROGEN 18 MG/DL (9-23); CALCIUM LEVEL 9.7 MG/DL (8.5-10.1); CARBON DIOXIDE LEVEL 29 MMOL/L (20-31); CHLORIDE LEVEL 105 MMOL/L (98-107); CREATININE FOR GFR 0.72 MG/DL (0.55-1.30); GLOMERULAR FILTRATION RATE > 60.0 (>60); GLUCOSE, FASTING 77 MG/DL (60-100); POTASSIUM SERUM 3.7 MMOL/L (3.5-5.1); SODIUM LEVEL 139 MMOL/L (136-145); TOTAL PROTEIN 7.2 G/DL (5.7-8.2)
== END ==
LOC: M SFHCCLAY 11:41
PROVIDERS: ATTEND Nurse Practitioner Family
DX: Z00.00 Encounter for general adult medical examination without abnormal findings (principal); R10.2 Pelvic and perineal pain; N89.8 Other specified noninflammatory disorders of vagina; R10.9 Unspecified abdominal pain

== ENCOUNTER → 2024-10-18 | Outpatient (REF) | payer OTHER ==
[2024-10-18 18:45] LABS: HEMATOCRIT 38.8 % (36.0-47.0); HEMOGLOBIN 13.1 g/dl (12.0-15.5); MEAN CORPUSCULAR HEMOGLOBIN 29.5 pg (27.0-33.0); MEAN CORPUSCULAR HGB CONC 33.8 g/dl (32.0-36.5); MEAN CORPUSCULAR VOLUME 87.4 fl (80.0-96.0); PLATELET COUNT, AUTOMATED 252 10^3/uL (150-450); RED BLOOD COUNT 4.44 10^6/uL (4.00-5.40); WHITE BLOOD COUNT 5.5 10^3/uL (4.0-10.0)
[2024-10-18 19:17] LABS: ALBUMIN 3.7 G/DL (3.2-5.2); ALKALINE PHOSPHATASE 41 U/L (35-104); ALT/SGPT 14 U/L (7.0-40); AST/SGOT 16 U/L (<34); BILIRUBIN,TOTAL 0.4 MG/DL (0.3-1.2); BLOOD UREA NITROGEN 10 MG/DL (9-23); CALCIUM LEVEL 8.5 MG/DL (8.5-10.1); CARBON DIOXIDE LEVEL 29 MMOL/L (20-31); CHLORIDE LEVEL 105 MMOL/L (98-107); CREATININE FOR GFR 0.74 MG/DL (0.55-1.30); GLOMERULAR FILTRATION RATE > 60.0 (>60); GLUCOSE, FASTING 85 MG/DL (60-100); POTASSIUM SERUM 3.8 MMOL/L (3.5-5.1); SODIUM LEVEL 142 MMOL/L (136-145); TOTAL PROTEIN 6.5 G/DL (5.7-8.2)
== END ==
LOC: M SFHCCLAY 13:55
PROVIDERS: ATTEND Nurse Practitioner Family
DX: Z91.81 History of falling (principal); K21.9 Gastro-esophageal reflux disease without esophagitis; G43.009 Migraine without aura, not intractable, without status migrainosus

== ENCOUNTER → 2024-10-18 | Outpatient (CLI) | payer OTHER | LOC: M CLY 14:11 | PROVIDERS: ATTEND Nurse Practitioner Family | DX: Z91.81 History of falling (principal) ==

== ENCOUNTER → 2024-11-04 | Outpatient (CLI) | payer OTHER ==
[~2024-11-04] MED LIST changes: +ISOVUE-370 76% 100ML VIAL ONE
== END ==
LOC: M PLAIMG 08:44
PROVIDERS: ATTEND Nurse Practitioner Family
DX: R10.84 Generalized abdominal pain (principal)

== ENCOUNTER → 2024-11-06 | Outpatient (CLI) | payer OTHER ==
[~2024-11-06] MED LIST changes: -ISOVUE-370 76% 100ML VIAL ONE
== END ==
LOC: M CLY 14:33
PROVIDERS: ATTEND Nurse Practitioner Family
DX: M54.59 Other low back pain (principal)

== ENCOUNTER → 2025-01-29 | Outpatient (CLI) | payer OTHER ==
[2025-01-29 13:37] LABS: PROGESTERONE 17.1 NG/ML
== END ==
LOC: M PLALAB 10:00
PROVIDERS: ATTEND Specialist
DX: N91.2 Amenorrhea, unspecified (principal)

== ENCOUNTER → 2025-04-04 | Outpatient (CLI) | payer OTHER ==
[~2025-04-04] MED LIST changes: -IBUP-1022 PO; +IBUP600T42 PO
[2025-04-04 16:04] LABS: TOTAL PROTEIN,RANDOM URINE < 6.0 MG/DL (0.0-14.0)
[2025-04-04 16:05] LABS: LDH LACTATE DEHYDROGENASE 132 U/L (120-246)
[2025-04-04 16:06] LABS: ALT/SGPT 12 U/L (7.0-40); AST/SGOT 14 U/L (<34); CREATININE FOR GFR 0.53 MG/DL (0.55-1.30); GLOMERULAR FILTRATION RATE > 90.0 (>60)
== END ==
LOC: M PLALAB 12:34
PROVIDERS: ATTEND Advanced Practice Midwife
DX: O09.529 Supervision of elderly multigravida, unspecified trimester (principal)

== ENCOUNTER → 2025-05-09 | Outpatient (CLI) | payer OTHER | LOC: M WHC 07:44 | PROVIDERS: ATTEND Advanced Practice Midwife | DX: O09.529 Supervision of elderly multigravida, unspecified trimester (principal) ==

== ENCOUNTER → 2025-06-10 | Outpatient (CLI) | payer OTHER | LOC: M RAD 16:21 | PROVIDERS: ATTEND Obstetrics & Gynecology | DX: Z34.82 Encounter for supervision of other normal pregnancy, second trimester (principal) ==

== ENCOUNTER → 2025-07-14 | Outpatient (CLI) | payer OTHER ==
[2025-07-14 12:13] LABS: PLATELET COUNT, AUTOMATED 192 10^3/uL (150-450)
[2025-07-14 12:43] LABS: GLUCOSE CHALLENGE TEST 1 HOUR 141 MG/DL (LESS THAN 140)
[2025-07-14 13:40] LABS: Trichomonas vaginalis (AMP) NOT DETECTED (NEGATIVE)
[2025-07-14 14:03] LABS: GC DNA AMPLIFICATION NEGATIVE (NEGATIVE)
[2025-07-14 14:19] LABS: HIV 1&2 SCREEN NEGATIVE (NEGATIVE)
[2025-07-14 14:26] LABS: HEPATITIS C VIRUS ABY INDEX < 0.02 INDEX (<0.8)
== END ==
LOC: M LAB 10:36
PROVIDERS: ATTEND Obstetrics & Gynecology
DX: Z34.82 Encounter for supervision of other normal pregnancy, second trimester (principal)

== ENCOUNTER → 2025-08-11 | Outpatient (CLI) | payer OTHER ==
[~2025-08-11] MED LIST changes: +ECOT81TA5 PO; +OMEP-173 PO
== END ==
LOC: M LAB 08:12
PROVIDERS: ATTEND Obstetrics & Gynecology
DX: O99.810 Abnormal glucose complicating pregnancy (principal); Z3A.00 Weeks of gestation of pregnancy not specified

== ENCOUNTER → 2025-09-03 | Outpatient (REF) | payer OTHER | LOC: M SFHCWAGY 12:29 | PROVIDERS: ATTEND Advanced Practice Midwife | DX: Z34.93 Encounter for supervision of normal pregnancy, unspecified, third trimester (principal); Z3A.35 35 weeks gestation of pregnancy ==